=== PATIENT | female | born 1980 | race Caucasian/White ===

== ENCOUNTER 2023-01-17 10:36 | Emergency (ER) | payer SELFPAY ==
[~2023-01-17] VITALS: Ht 167.6 cm; Wt 76.0 kg
[2023-01-17 10:39] VITALS: BP 132/80; PULSE 82; RESP 18; TEMP 97.9; O2SAT 99
[2023-01-17] MEDS ORDERED: LEVETIRACETAM 1000MG PREMIX 100 ML IV ONE (11:15)
[2023-01-17] MEDS ORDERED: LACO100T2 PO (11:23)
[2023-01-17] MEDS ORDERED: KEPP500 PO (11:23)
== END 2023-01-17 12:00 | disposition home or self-care (01) ==
LOC: ER 11:13
DX: R56.9 Unspecified convulsions (principal); Z85.9 Personal history of malignant neoplasm, unspecified; Z76.0 Encounter for issue of repeat prescription
CPT/HCPCS: 99283

== ENCOUNTER 2023-10-11 11:56 | Emergency (ER) | payer MEDICAID ==
[~2023-10-11] VITALS: Ht 162.6 cm; Wt 72.0 kg
[~2023-10-11 11:56] MED LIST: KEPP500 PO; LACO100T2 PO
[2023-10-11 11:57] VITALS: BP 138/88; PULSE 96; RESP 16; TEMP 98.4; O2SAT 99
[2023-10-11] MEDS ORDERED: MIRT7.5T11 PO (19:54)
[2023-10-11] MEDS ORDERED: OLAN10TA72 PO (19:54)
[2023-10-11] MEDS ORDERED: HYDR50TA54 PO (19:54)
[2023-10-11] MEDS ORDERED: LEVE10006 PO (19:54)
[2023-10-11] MEDS ORDERED: TENO25TA PO (19:54)
[2023-10-11] MEDS ORDERED: FLUO40CA49 PO (19:54)
== END 2023-10-11 12:22 | disposition left against medical advice (07) ==
LOC: ER 11:56
DX: R44.1 Visual hallucinations (principal); Z53.21 Procedure and treatment not carried out due to patient leaving prior to being seen by health care provider

== ENCOUNTER 2024-04-27 17:02 | Emergency (ER) | payer MEDICAID ==
[~2024-04-27] VITALS: Ht 165.1 cm; Wt 60.0 kg
[~2024-04-27 17:02] MED LIST changes: +FLUO40CA49 PO; +HYDR50TA54 PO; -KEPP500 PO; +LEVE10006 PO; +MIRT7.5T11 PO; +OLAN10TA72 PO; +TENO25TA PO
[2024-04-27 17:16] VITALS: TEMP 98.4; O2SAT 100
[2024-04-27 17:34] VITALS: BP 176/101; PULSE 110; RESP 20; O2SAT 100
[2024-04-27] MEDS: DIPHENHYDRAMINE 50MG/ML VIAL IM STA (17:50)
[2024-04-27] MEDS: LORAZEPAM 2MG/ML INJ IM ONE (17:50)
[2024-04-27] MEDS: HALOPERIDOL LACTATE 5MG/ML VIAL IM STA (17:51)
== END 2024-04-27 18:40 | disposition left against medical advice (07) ==
LOC: ER 17:02
DX: F23 Brief psychotic disorder (principal); R56.9 Unspecified convulsions; Z79.624 Long term (current) use of inhibitors of nucleotide synthesis; Z79.899 Other long term (current) drug therapy
CPT/HCPCS: 96372; 99284; J1200; J1630; J2060; Z7610 ×2

== ENCOUNTER 2024-07-27 15:02 | Emergency (ER) | payer MEDICAID ==
[~2024-07-27] VITALS: Ht 162.6 cm; Wt 55.0 kg
[~2024-07-27 15:02] MED LIST changes: +LACO100T4 PO; +LEVE100023 PO; -LEVE10006 PO; +LORA2TAB95 PO
[2024-07-27 15:07] VITALS: O2SAT 97
[2024-07-27] MEDS: LORAZEPAM 1MG TABLET PO ONE (17:42)
[2024-07-27] MEDS: LEVETIRACETAM 500MG TABLET PO ONE (17:53)
[2024-07-27 17:57] LABS: CHLORIDE 100 mEq/L (98-107); POTASSIUM 4.3 mEq/L (3.5-5.1); SODIUM 132 mEq/L (136-145)
[2024-07-27 17:59] LABS: CALCIUM 9.5 mg/dL (8.7-10.4); CARBON DIOXIDE 26 mEq/L (21-32)
[2024-07-27 18:01] LABS: BASOPHILS % 0.8 % (0.0-2.0); EOSINOPHILS % 2.9 % (0.0-5.0); HEMATOCRIT. 34.1 % (36.0-48.0); HEMOGLOBIN. 11.2 g/dL (12.0-16.0); LYMPHOCYTES % 52.6 % (20.0-50.0); MEAN CORPUSCULAR HEMOGLOBIN 31.3 pg (28.0-32.0); MEAN CORPUSCULAR HGB CONC 32.8 g/dL (31.0-37.0); MEAN CORPUSCULAR VOLUME 95.4 fL (81.0-99.0); MEAN PLATELET VOLUME 6.7 fl (7.4-10.4); MONOCYTES % 9.6 % (2.0-8.0); NEUTROPHILS % 34.1 % (40.0-76.0); PLATELET 307 x1000/uL (130-400); RED BLOOD CELL COUNT 3.57 mill/uL (4.2-5.4); RED CELL DISTRIBUTION WIDTH 14.3 % (11.6-14.6); WHITE BLOOD COUNT 3.4 x1000/uL (4.5-11.0)
[2024-07-27 18:04] LABS: CREATININE 0.8 mg/dL (0.6-1.0); GLUCOSE 78 mg/dL (70-105); UREA NITROGEN BLOOD 7 mg/dL (9-23)
[2024-07-27 18:05] LABS: ETHANOL BLOOD < 10 mg/dL (<10)
[2024-07-27 18:06] LABS: ALANINE AMINOTRANSFERASE 124 IU/L (10-49); ASPARTATE AMINOTRANSFERASE 165 IU/L (<34); BILIRUBIN DIRECT 0.1 mg/dL (<=3.0)
[2024-07-27 18:07] LABS: BILIRUBIN TOTAL 0.4 mg/dL (0.1-1.0); PROTEIN TOTAL 7.4 g/dL (6.0-8.3)
[2024-07-27 18:27] LABS: HCG SCREEN NEGATIVE
[2024-07-27 19:50] VITALS: BP 140/66; PULSE 66; RESP 16; O2SAT 98
== END 2024-07-27 19:52 | disposition home or self-care (01) ==
LOC: ER 15:46
DX: G40.909 Epilepsy, unspecified, not intractable, without status epilepticus (principal); F41.9 Anxiety disorder, unspecified; Z79.624 Long term (current) use of inhibitors of nucleotide synthesis; Z79.899 Other long term (current) drug therapy; Z88.8 Allergy status to other drugs, medicaments and biological substances
CPT/HCPCS: 36415; 80048; 80076; 80320; 81025; 84703; 85025; 99283; G0480

== ENCOUNTER 2024-08-07 13:50 | Emergency (ER) | payer MEDICAID ==
[~2024-08-07] VITALS: Ht 170.2 cm; Wt 67.0 kg
[2024-08-07 13:57] VITALS: O2SAT 100
[2024-08-07] MEDS ORDERED: LEVETIRACETAM 1000MG PREMIX 100 ML IV ONE (15:00)
[2024-08-07 15:32] LABS: BASOPHILS % 0.7 % (0.0-2.0); EOSINOPHILS % 0.9 % (0.0-5.0); HEMATOCRIT. 36.6 % (36.0-48.0); HEMOGLOBIN. 12.5 g/dL (12.0-16.0); LYMPHOCYTES % 40.2 % (20.0-50.0); MEAN CORPUSCULAR HEMOGLOBIN 31.9 pg (28.0-32.0); MEAN CORPUSCULAR VOLUME 93.8 fL (81.0-99.0); MEAN PLATELET VOLUME 6.7 fl (7.4-10.4); MONOCYTES % 11.8 % (2.0-8.0); NEUTROPHILS % 46.4 % (40.0-76.0); PLATELET 372 x1000/uL (130-400); RED BLOOD CELL COUNT 3.91 mill/uL (4.2-5.4); RED CELL DISTRIBUTION WIDTH 13.7 % (11.6-14.6); WHITE BLOOD COUNT 3.4 x1000/uL (4.5-11.0)
[2024-08-07 15:38] LABS: CARBON DIOXIDE 26 mEq/L (21-32); CHLORIDE 97 mEq/L (98-107); SODIUM 130 mEq/L (136-145)
[2024-08-07 15:39] LABS: CALCIUM 10.2 mg/dL (8.7-10.4)
[2024-08-07 15:43] LABS: CREATININE 0.7 mg/dL (0.6-1.0)
[2024-08-07 15:44] LABS: ETHANOL BLOOD < 10 mg/dL (<10); GLUCOSE 80 mg/dL (70-105); UREA NITROGEN BLOOD 11 mg/dL (9-23)
[2024-08-07 15:56] LABS: HCG SCREEN NEGATIVE
[2024-08-07] MEDS ORDERED: SODIUM CHLORIDE 0.9% 1,000 ML IV NR (16:00)
[2024-08-07] MEDS: LACOSAMIDE 100MG TABLET PO SCH (16:10)
[2024-08-07] MEDS: LEVETIRACETAM 500MG TABLET PO NR (16:27)
[2024-08-07 17:46] VITALS: BP 134/101; PULSE 92; RESP 18; TEMP 36.9; O2SAT 100
== END 2024-08-07 18:33 | disposition home or self-care (01) ==
LOC: ER 13:50
DX: R56.9 Unspecified convulsions (principal); F41.9 Anxiety disorder, unspecified; Z88.0 Allergy status to penicillin; Z88.5 Allergy status to narcotic agent; Z88.8 Allergy status to other drugs, medicaments and biological substances; Z79.899 Other long term (current) drug therapy
CPT/HCPCS: 36415; 80048; 80320; 80339; 84703; 85025; 99283; G0480